=== PATIENT | female | born 1980 | race Two or more races ===

== ENCOUNTER 2024-01-02 11:05 | Emergency (ER) | payer OTHER ==
[~2024-01-02] VITALS: Ht 177.8 cm; Wt 93.9 kg
[2024-01-02] MEDS ORDERED: cloNIDine HCL 0.2 MG TABLET PO STA (13:16)
[2024-01-02 13:41] LABS: HEMATOCRIT 30.9 % (36.0-45.00); HEMOGLOBIN 9.9 g/dL (12.0-15.00); MEAN CORPUSCULAR HEMOGLOBIN 20.8 pg (27.00-32.0); PLATELET COUNT 240 K/uL (150-450); RED BLOOD COUNT 4.77 M/uL (4.00-6.00); RED CELL DISTRIBUTION WIDTH 17.8 % (11.5-14.5)
[2024-01-02 13:43] LABS: MEAN CELL VOLUME 64.8 fL (80.00-100.00)
[2024-01-02 13:52] LABS: CALCIUM 8.9 mg/dL (8.5-10.1); CREATININE SERUM 0.72 mg/dL (0.55-1.02); GFR 89.26; POTASSIUM 3.95 mEq/L (3.5-5.1)
== END 2024-01-02 15:38 | disposition home or self-care (01) ==
LOC: ER 11:06
PROVIDERS: General Practice
DX: I10 Essential (primary) hypertension (principal); D64.9 Anemia, unspecified